=== PATIENT | male | born 1985 | race Caucasian/White ===

== ENCOUNTER 2021-06-11 12:34 | Emergency (ER) | payer OTHER ==
[~2021-06-11] VITALS: Ht 177.8 cm; Wt 84.0 kg
[2021-06-11 12:34] VITALS: BP 138/84
[2021-06-11] MEDS ORDERED: IV NORMAL SALINE 1,000ML 1,000 ML IV ONE ×2 (13:00→13:45)
--- NOTE | 2021-06-11 13:03 | PHYS DOC ---
General Adult EDM: Chief Complaint: SYNCOPE HPI: HPI: 35-year-old male presents via EMS after syncopal episode at home. Patient states that he was defecating and that the last thing he members. He woke up on the floor with his girlfriend and roommate talking to him. They called EMS. He has no idea what happened. He has never had a syncopal episode before. He was feeling normal prior to this episode. At this time, he states he feels a little "foggy" but otherwise feels fine. He thinks he may have hit the left upper side of his head but denies significant pain or headache. He has no other areas of concern for injury. The patient is on Adderall and Xanax but took those early this morning. He denies fever or chills. Review of Systems: Review of Systems: Constitutional: Denies fever or chills Eyes: Denies change in visual acuity HENT: Denies nasal congestion or sore throat Respiratory: Denies cough or shortness of breath Cardiovascular: Denies chest pain or edema GI: Denies abdominal pain, nausea, vomiting, bloody stools or diarrhea : Denies dysuria Musculoskeletal: Denies back pain or joint pain Integument: Denies rash Neurologic: Syncope. Denies headache, focal weakness or sensory changes Endocrine: Denies polyuria or polydipsia Lymphatic: Denies swollen glands Psychiatric: Denies depression or anxiety Current Medications: Current Meds: Current Medications Medications (Trade) Dose Ordered Sig/[facility] Start Time Stop Time Status Last Admin Dose Admin Sodium Chloride 1,000 ml @ 1,000 mls/hr 1X ONCE 06/11/21 13:00 06/11/21 13:59 UNV Physical Exam: PE: Constitutional: Well developed, well nourished, no acute distress, non-toxic appearance. [] HENT: Normocephalic, atraumatic, bilateral external ears normal, oropharynx moist, no oral exudates, nose normal. [] Eyes: PERRLA, EOMI, conjunctiva normal, no discharge. [] Neck: Normal range of motion, no tenderness, supple, no stridor. [] Cardiovascular: Heart rate regular rhythm, no murmur [] Lungs & Thorax: Bilateral breath sounds clear to auscultation [] Abdomen: Bowel sounds normal, soft, no tenderness, no masses, no pulsatile masses. [] Skin: Warm, dry, no erythema, no rash. [] Back: No tenderness, no CVA tenderness. [] Extremities: No tenderness, no cyanosis, no clubbing, ROM intact, no edema. [] Neurologic: Alert and oriented X 3, normal motor function, normal sensory function, no focal deficits noted. [] Psychologic: Affect normal, judgement normal, mood normal. [] EKG: EKG: Sinus rhythm, rate 100, normal axis, no ST elevation or depression. [] Radiology/Procedures: Radiology/Procedures: [] Impressions: CT HEAD/BRAIN WO Date: 06/11/2021 1:31 PM Clinical Indication: syncope, fall Comparison: None. Technique: 5 mm axial tomographic images were obtained of the head without contrast. These were viewed on brain and bone windows. One or more of the following dose reduction techniques were utilized: Automated exposure control (AEC), Adjustment of mA and/or kV according to patient size, Use of iterative reconstruction technique such as ASiR, CT scan done according to ALARA and image gently/image wisely Findings: The brain parenchyma is normal in attenuation. No intra- or extra-axial mass or fluid collection. No acute hemorrhage. The ventricles are normal in size, shape, and morphology. The gilbert-white matter junction is normal. The subarachnoid cisterns are patent. The visualized paranasal sinuses are normal. The visualized portions of the orbits and globes are normal. The mastoid air cells are clear. The community representative topogram shows no lytic lesion or fracture. Impression: No acute intracranial process. Electronically signed by: Eder Younger MD (06/11/2021 1:41 PM) [id number] DICTATED AND SIGNED BY: EDER YOUNGER MD DATE: 06/11/21 1339 CC: DARA LOPEZ DO; PCP,NO ~MTH0 0 EXAM: AP View of the chest DATE: 06/11/2021 12:58 PM INDICATION: Reason: syncope / Spl. Instructions: / History: COMPARISON: No Prior FINDINGS: The heart is not enlarged. Mediastinal and hilar contours are normal. No focal parenchymal airspace opacity. No pleural effusion or pneumothorax. IMPRESSION: 1. No radiographic evidence for acute cardiopulmonary process. Electronically signed by: Michi Hagen MD (06/11/2021 1:17 PM) UICNATALYA DICTATED AND SIGNED BY: MICHI HAGEN MD DATE: 06/11/21 1317 CC: DARA LOPEZ DO; PCP,NO ~MTH0 0 Heart Score: C/O Chest Pain: N/A Risk Factors: Risk Factors: DM, Current or recent (<one month) smoker, HTN, HLP, family history of CAD, obesity. Risk Scores: Score 0 - 3: 2.5% MACE over next 6 weeks - Discharge Home Score 4 - 6: 20.3% MACE over next 6 weeks - Admit for Clinical Observation Score 7 - 10: 72.7% MACE over next 6 weeks - Early Invasive Strategies Course & Med Decision Making: Course & Med Decision Making Pertinent Labs and Imaging studies reviewed. (See chart for details) The patient's labs are significant for looks like hemoconcentration. His lactic acid is extremely high. We will give the patient 2 L normal saline in addition to the 500 that EMS gave. The patient had urine output in the ER but less than 500 mL. He appears to have been profoundly dehydrated. His elevated lactic acid raises the concern for seizure. I have spoken with the patient about this and advised that he talk to his primary care physician about a neurology referral and outpatient EEG. The patient also tested positive for marijuana and I advised him that this could lower seizure threshold if he has an undiagnosed seizure disorder. Patient states verbal understanding. His repeat lactic acid is normal. The rest of his work-up is unremarkable. He is just getting over COVID-19. He is stable for discharge at this time. [] Cristine Disclaimer: Dragrichardson Disclaimer: This electronic medical record was generated, in whole or in part, using a voice recognition dictation system. Departure Departure: Impression: Primary Impression: Episode of syncope Disposition: HOME / SELF CARE / HOMELESS Condition: STABLE Referrals: PCP,WESTON (PCP) Patient Instructions: Syncope, B[id number] DARA LOPEZ DO Jun 11, 2021 13:03
[2021-06-11 13:04] LABS: BASO # 0.1 x10^3/uL (0.0-0.2); BASO % 1 % (0-3); EOS # 0.1 x10^3/uL (0.0-0.7); EOS % 1 % (0-3); HEMATOCRIT 57.4 % (39.0-53.0); HEMOGLOBIN 19.3 g/dL (13.0-17.5); LYMPH # 3.3 x10^3/uL (1.0-4.8); LYMPH % 27 % (24-48); MEAN CORPUSCULAR HEMOGLOBIN 31 pg (25-35); MEAN CORPUSCULAR HGB CONC 34 g/dL (31-37); MEAN CORPUSCULAR VOLUME 93 fL (79-100); MONO # 1.1 x10^3/uL (0.0-1.1); MONO % 10 % (0-9); NEUT # 7.6 x10^3uL (1.8-7.7); NEUT % 62 % (31-73); PLATELET COUNT 255 x10^3/uL (140-400); RED BLOOD COUNT 6.15 x10^6/uL (4.30-5.70); RED CELL DISTRIBUTION WIDTH 14.9 % (11.5-14.5); WHITE BLOOD COUNT 12.2 x10^3/uL (4.0-11.0)
[2021-06-11 13:15] LABS: CALCIUM 7.7 mg/dL (8.5-10.1); CREATININE 1.4 mg/dL (0.7-1.3); GFR 58.4; POTASSIUM 3.6 mmol/L (3.5-5.1)
--- NOTE | 2021-06-11 13:19 | RAD ---
EXAM: AP View of the chest DATE: 06/11/2021 12:58 PM INDICATION: Reason: syncope / Spl. Instructions: / History: COMPARISON: No Prior FINDINGS: The heart is not enlarged. Mediastinal and hilar contours are normal. No focal parenchymal airspace opacity. No pleural effusion or pneumothorax. IMPRESSION: 1. No radiographic evidence for acute cardiopulmonary process. Electronically signed by: Michi Hamm MD (06/11/2021 1:17 PM) FLORIDALMA
[2021-06-11 13:21] LABS: ALBUMIN/GLOBULIN RATIO 1.2 (1.0-1.7); TOTAL BILIRUBIN 0.4 mg/dL (0.2-1.0); TOTAL PROTEIN 7.3 g/dL (6.4-8.2)
--- NOTE | 2021-06-11 13:43 | RAD ---
CT HEAD/BRAIN WO Date: 06/11/2021 1:31 PM Clinical Indication: syncope, fall Comparison: None. Technique: 5 mm axial tomographic images were obtained of the head without contrast. These were view ed on brain and bone windows. One or more of the following dose reduction techniques were utilized: A utomated exposure control (AEC), Adjustment of mA and/or kV according to patient size, Use of iterati ve reconstruction technique such as ASiR, CT scan done according to ALARA and image gently/image glasgow ly Findings: The brain parenchyma is normal in attenuation. No intra- or extra-axial mass or fluid collection. No acute hemorrhage. The ventricles are normal in size, shape, and morphology. The gilbert-white matter alex ction is normal. The subarachnoid cisterns are patent. The visualized paranasal sinuses are normal. The visualized portions of the orbits and globes are no rmal. The mastoid air cells are clear. The other wood processing machine operator topogram shows no lytic lesion or fracture. Impression: No acute intracranial process. Electronically signed by: Davon Younger MD (06/11/2021 1:41 PM) [id number]
[2021-06-11] MEDS ORDERED: HYDROcodone/APAP 5/325MG 1 TAB TABLET PO ONE (15:30)
[2021-06-11 15:59] LABS: BARBITURATES NEG (NEG); BENZODIAZEPINES NEG (NEG); CANNABINOIDS POS (NEG); COCAINE NEG (NEG); METHADONE NEG (NEG); OPIATES NEG (NEG); PHENCYCLIDINE NEG (NEG)
[2021-06-11 16:05] LABS: AMPHETAMINE/METHAMPHETAMINE NEG (NEG)
[2021-06-11 16:28] LABS: BACTERIA,URINE 0 /HPF (0-FEW); BILIRUBIN,URINE NEG (NEG); CLARITY,URINE CLEAR; COLOR,URINE YELLOW; GLUCOSE,URINE 500 mg/dL (NEG); NITRITE,URINE NEG (NEG); RBC,URINE OCC /HPF (0-2); UROBILINOGEN,URINE 0.2 mg/dL (0.2 mg/dL); WBC,URINE OCC /HPF (0-4)
[2021-06-11 16:29] LABS: SQUAMOUS EPITHELIAL CELL,UR OCC /LPF
--- NOTE | 2021-06-11 16:51 | EKG ---
[address] [address] Test Date: 2021-06-11 Test Time: 12:39:50 Pat Name: MIGUEL ANGEL KELLY Department: Room: Gender: M Nephrology Nurse: NEYDA : 1985 Requested By: DARA LOPEZ Order Number: [id number] Reading MD: Armaan Alonzo MD Measurements Intervals [place] Rate: 100 P: 36 NE: 150 QRS: 83 QRSD: 76 T: 30 QT: 310 QTc: 403 Interpretive Statements SINUS RHYTHM Electronically Signed On 06-12-2021 9:14:09 HEALTHCARE REPRESENTATIVE by Armaan Alonzo MD
== END 2021-06-11 17:04 | disposition home or self-care (01) ==
LOC: ER 12:34
DX: R55 Syncope and collapse (principal)
CPT/HCPCS: 36415; 70450; 71045; 80053; 80307; 81001; 83605; 84484; 85025; 93005; 96360; 96361; 99285; J7030